=== PATIENT | female | born 1965 | race Caucasian/White ===

== ENCOUNTER 2016-07-07 15:19 | Outpatient (CLI) | payer OTHER | END 2016-07-07 15:20 | disposition EMS.NT | DX: Z04.1 Encounter for examination and observation following transport accident (principal); V49.60XA Unspecified car occupant injured in collision with unspecified motor vehicles in traffic accident, initial encounter; Y92.414 Local residential or business street as the place of occurrence of the external cause ==

== ENCOUNTER 2016-09-22 09:47 | Outpatient (CLI) | payer OTHER | END 2016-09-22 09:48 | disposition home or self-care (01) | DX: N95.9 Unspecified menopausal and perimenopausal disorder (principal) ==

== ENCOUNTER 2017-03-29 08:00 | Outpatient (CLI) | payer OTHER | END 2017-03-29 23:59 | disposition home or self-care (01) | LOC: LAB.R 08:00 | PROVIDERS: ATTEND Family Medicine | DX: N12 Tubulo-interstitial nephritis, not specified as acute or chronic (principal) | CPT/HCPCS: 87077; 87086 ==

== ENCOUNTER 2017-08-15 09:30 | Outpatient (CLI) | payer OTHER ==
[2017-08-15 18:25] LABS: BILIRUBIN,URINE NEGATIVE (NEGATIVE); GLUCOSE, URINE (UA) NEGATIVE (NEGATIVE); KETONES,URINE (UA) NEGATIVE (NEGATIVE); LEUKOCYTE ESTERASE, URINE NEGATIVE (NEGATIVE); NITRITE,URINE NEGATIVE (NEGATIVE); OCCULT BLOOD,URINE NEGATIVE (NEGATIVE); PROTEIN,URINE NEGATIVE (NEGATIVE); UROBILINOGEN,URINE 0.2 (NORMAL) E.U./dL (NORMAL)
[2017-08-15 19:04] LABS: AMORPHOUS SEDIMENT,UR Marked /LPF; BACTERIA,URINE Moderate /HPF (None Seen); CLARITY,URINE CLOUDY (CLEAR); MUCUS,URINE Moderate Strands; RBC,URINE 0-5 /HPF (0-5); SQUAMOUS EPITHELIAL CELL,UR MANY Squamous (<= Few)
== END 2017-08-15 09:31 ==
LOC: LAB.R 09:30
PROVIDERS: ATTEND Internal Medicine
DX: R03.0 Elevated blood-pressure reading, without diagnosis of hypertension (principal); N12 Tubulo-interstitial nephritis, not specified as acute or chronic; Z78.0 Asymptomatic menopausal state; F41.8 Other specified anxiety disorders
CPT/HCPCS: 81001; 87086

== ENCOUNTER 2017-08-15 09:37 | Outpatient (CLI) | payer OTHER ==
[2017-08-15 18:37] LABS: ALBUMIN 4.3 g/dL (3.2-5.5); ALBUMIN/GLOBULIN RATIO 1.4 (1.0-2.2); BILIRUBIN,TOTAL 0.7 mg/dL (0.2-1.0); CALCIUM 9.5 mg/dL (8.5-10.3); CREATININE 0.6 mg/dL (0.4-1.0); TOTAL PROTEIN 7.4 g/dL (6.7-8.2)
== END 2017-08-15 09:38 | disposition home or self-care (01) ==
LOC: LAB.F 09:37
PROVIDERS: ATTEND Family Medicine
DX: R03.0 Elevated blood-pressure reading, without diagnosis of hypertension (principal); N12 Tubulo-interstitial nephritis, not specified as acute or chronic; Z78.0 Asymptomatic menopausal state; F41.8 Other specified anxiety disorders
CPT/HCPCS: 36415; 80053; 81001; 87086

== ENCOUNTER 2017-09-29 13:12 | Outpatient (CLI) | payer OTHER ==
[2017-09-29 18:08] LABS: BASOPHILS % (AUTO) 0.7 %; HGB - HEMOGLOBIN 14.7 g/dL (12.0-16.0); LYMPHOCYTES # (AUTO) 1.3 10^3/uL (1.5-3.5); LYMPHOCYTES % (AUTO) 30.6 %; MEAN CORPUSCULAR HEMOGLOBIN 33.5 pg (27.0-31.0); MEAN CORPUSCULAR VOLUME 98.7 fL (81.0-99.0); MEAN PLATELET VOLUME 8.1 fL (7.9-10.8); MONOCYTES # (AUTO) 0.4 10^3/uL (0.0-1.0); NEUTROPHILS # (AUTO) 2.5 10^3/uL (1.5-6.6); NEUTROPHILS % (AUTO) 58.7 %; PLT - PLATELET COUNT 166 10^3/uL (130-450); RED BLOOD COUNT 4.39 10^6/uL (4.20-5.40); RED CELL DISTRIBUTION WIDTH 12.3 % (12.0-15.0); WHITE BLOOD COUNT 4.2 x10^3/uL (4.8-10.8)
[2017-09-29 18:24] LABS: ALBUMIN 4.1 g/dL (3.2-5.5); ALBUMIN/GLOBULIN RATIO 1.1 (1.0-2.2); ALKALINE PHOSPHATASE 35 IU/L (42-121); ALT ALANINE AMINOTRANSFERASE 47 IU/L (10-60); AST ASPARTATE AMINOTRANSFERASE 40 IU/L (10-42); BILIRUBIN,TOTAL 1.1 mg/dL (0.2-1.0); BUN - BLOOD UREA NITROGEN 14 mg/dL (6-20); CALCIUM 9.5 mg/dL (8.5-10.3); CARBON DIOXIDE - CO2 27 mmol/L (21-32); CHLORIDE 99 mmol/L (101-111); CREATININE 0.6 mg/dL (0.4-1.0); GFR - MDRD 105 (>89); GLUCOSE 107 mg/dL (70-100); SODIUM 135 mmol/L (135-145); TOTAL PROTEIN 7.9 g/dL (6.7-8.2)
[2017-09-30 13:53] LABS: HEPATITIS C ANTIBODY REACTIVE (NON-REACTIVE)
[2017-10-02 17:27] LABS: ANA SCREEN NEGATIVE (NEGATIVE)
[2017-10-04 13:47] LABS: HCV RNA QNT <1.18 NOT DETECTED Log IU/mL (NOT DETECTED); HCV RNA QUANT RT PCR <15 NOT DETECTED IU/mL (NOT DETECTED)
== END 2017-09-29 13:13 | disposition home or self-care (01) ==
LOC: LAB.F 13:12
PROVIDERS: ATTEND Internal Medicine
DX: Z00.00 Encounter for general adult medical examination without abnormal findings (principal); L93.0 Discoid lupus erythematosus; M25.549 Pain in joints of unspecified hand; Z79.899 Other long term (current) drug therapy
CPT/HCPCS: 36415; 80053; 81599; 84443; 85025; 85651; 86038; 86803; 87521; 87902

== ENCOUNTER 2018-06-27 15:30 | Outpatient (CLI) | payer OTHER ==
--- NOTE | 2018-06-28 17:53 | XRAY Report ---
Reason: RIGHT RIB PAIN Procedure Date: 06/27/2018 Accession Number: [id number] / [id number] Procedure: WCP - Ribs 2 View RT CPT Code: FULL RESULT: EXAM: RIGHT RIB RADIOGRAPHY EXAM DATE: 06/27/2018 03:45 PM. CLINICAL HISTORY: Right rib pain. COMPARISON: None. TECHNIQUE: 2 views. FINDINGS: Bones: Normal. No fracture or bone lesion. Lungs: No focal opacities evident. No pneumothorax or pleural effusions. Mediastinum: Heart and cardiomediastinal contours are unremarkable. Other: Bilateral breast implants are present. IMPRESSION: Normal rib radiography. [facility]
== END 2018-06-27 15:31 | disposition home or self-care (01) ==
LOC: DI.WCP 15:30
PROVIDERS: ATTEND Family Medicine
DX: R07.81 Pleurodynia (principal)

== ENCOUNTER 2019-03-22 08:00 | Outpatient (CLI) | payer OTHER | END 2019-03-22 23:59 | disposition home or self-care (01) | LOC: LAB.R 08:00 | PROVIDERS: ATTEND Nurse Practitioner Family | DX: L08.9 Local infection of the skin and subcutaneous tissue, unspecified (principal) | CPT/HCPCS: 87070; 87075; 87205 ==

== ENCOUNTER 2019-03-22 11:53 | Outpatient (CLI) | payer OTHER ==
[2019-03-22 17:11] LABS: BASOPHILS % (AUTO) 0.8 %; EOSINOPHILS # (AUTO) 0.1 10^3/uL (0.0-0.7); EOSINOPHILS % (AUTO) 1.7 %; HGB - HEMOGLOBIN 14.5 g/dL (12.0-16.0); LYMPHOCYTES # (AUTO) 1.4 10^3/uL (1.5-3.5); LYMPHOCYTES % (AUTO) 38.1 %; MEAN CORPUSCULAR HEMOGLOBIN 32.7 pg (27.0-31.0); MEAN CORPUSCULAR HGB CONC 33.3 g/dL (32.0-36.0); MEAN CORPUSCULAR VOLUME 98.2 fL (81.0-99.0); MEAN PLATELET VOLUME 10.5 fL (7.9-10.8); MONOCYTES # (AUTO) 0.4 10^3/uL (0.0-1.0); NEUTROPHILS # (AUTO) 1.7 10^3/uL (1.5-6.6); NEUTROPHILS % (AUTO) 48.1 %; PLT - PLATELET COUNT 153 10^3/uL (130-450); RED BLOOD COUNT 4.43 10^6/uL (4.20-5.40); RED CELL DISTRIBUTION WIDTH 11.9 % (12.0-15.0); WHITE BLOOD COUNT 3.5 x10^3/uL (4.8-10.8)
[2019-03-22 18:06] LABS: ALBUMIN 4.2 g/dL (3.2-5.5); ALBUMIN/GLOBULIN RATIO 1.2 (1.0-2.2); ALKALINE PHOSPHATASE 80 IU/L (42-121); ALT ALANINE AMINOTRANSFERASE 29 IU/L (10-60); AST ASPARTATE AMINOTRANSFERASE 29 IU/L (10-42); BUN - BLOOD UREA NITROGEN 12 mg/dL (6-20); CALCIUM 9.8 mg/dL (8.5-10.3); CARBON DIOXIDE - CO2 25 mmol/L (21-32); CHLORIDE 106 mmol/L (101-111); CHOL/HDL RATIO 2.5 (<4.4); CHOLESTEROL 209 mg/dL; CREATININE 0.5 mg/dL (0.4-1.0); GFR - MDRD 130 (>89); GLUCOSE 121 mg/dL (70-100); HDL CHOLESTEROL 82 mg/dL; LDL CHOLESTEROL,CALCULATED 114 mg/dL; LDL/HDL RATIO 1.4 (<4.4); SODIUM 140 mmol/L (135-145); TOTAL PROTEIN 7.6 g/dL (6.7-8.2); VLDL CHOLESTEROL 13 mg/dL
[2019-03-22 18:43] LABS: FOLLICLE STIMULATING HORMONE 48.61 mIU/mL
[2019-03-23 12:36] LABS: HEPATITIS C ANTIBODY REACTIVE (NON-REACTIVE)
[2019-03-26 16:11] LABS: HCV RNA QNT <1.18 NOT DETECTED Log IU/mL (NOT DETECTED); HCV RNA QUANT RT PCR <15 NOT DETECTED IU/mL (NOT DETECTED)
== END 2019-03-22 11:54 | disposition home or self-care (01) ==
LOC: LAB.S 11:53
PROVIDERS: ATTEND Family Medicine
DX: Z00.00 Encounter for general adult medical examination without abnormal findings (principal); F41.8 Other specified anxiety disorders; R53.83 Other fatigue; Z11.59 Encounter for screening for other viral diseases
CPT/HCPCS: 36415; 80053; 80061; 83001; 83721; 84443; 85025; 86803

== ENCOUNTER 2019-06-14 15:00 | Outpatient (CLI) | payer OTHER ==
--- NOTE | 2019-06-25 16:01 | Mammography Report ---
Reason: SCREENING MAMMO Procedure Date: 06/14/2019 Accession Number: [id number] / [id number] Procedure: MGS - Screening Mammo Dig w/Implants CPT Code: Final Report FULL RESULT: EXAM: Screening Mammo Dig w/Implants DATE: 06/14/2019 3:36 PM CLINICAL HISTORY: Screening encounter. History of early menses. Family history of breast cancer in a maternal aunt at the age of 80. History of retropectoral breast augmentation. TECHNIQUE: (B) - Bilateral CC and MLO views were obtained. Views are obtained in standard fashion and implant displaced technique. COMPARISON: None PARENCHYMAL PATTERN: (D) - The breast(s) demonstrate(s) heterogeneously dense fibroglandular parenchyma. FINDINGS: Bilateral intact-appearing saline type retropectoral breast implants are noted, typically benign. There are no suspicious masses, calcifications, or areas of distortion. IMPRESSION: Benign findings. BI-RADS category 2. RECOMMENDATION: (ANNUAL) - Recommend routine annual screening mammography. BI-RADS CATEGORY: (2) - Benign Findings. STANDARD QUALIFYING STATEMENTS: 1. This examination was reviewed with the aid of Computer-Aided Detection (CAD). 2. A negative or benign imaging report should not preclude biopsy if clinically suspicious findings are present. 3. Dense breasts may obscure an underlying neoplasm. 4. This examination was reviewed without the aid of 3D breast imaging (tomosynthesis).
== END 2019-06-14 15:01 | disposition home or self-care (01) ==
LOC: DI.S 15:00
PROVIDERS: ATTEND Family Medicine
DX: Z12.31 Encounter for screening mammogram for malignant neoplasm of breast (principal); Z80.3 Family history of malignant neoplasm of breast; Z98.82 Breast implant status
CPT/HCPCS: 77067

== ENCOUNTER 2019-06-14 15:13 | Outpatient (CLI) | payer OTHER | END 2019-06-14 15:14 | disposition home or self-care (01) | LOC: LAB.S 15:13 | PROVIDERS: ATTEND Family Medicine | DX: B19.20 Unspecified viral hepatitis C without hepatic coma (principal) | CPT/HCPCS: 36415; 81599; 86803; 87522 ==

== ENCOUNTER 2020-02-14 15:16 | Outpatient (CLI) | payer OTHER ==
--- NOTE | 2020-02-14 15:41 | XRAY Report ---
PROCEDURE: Foot 3 View LT INDICATIONS: PAINFUL LT FOOT TECHNIQUE: 3 views of the foot were acquired. COMPARISON: None FINDINGS: Bones: Irregular osseous density which is mostly fused to the medial margin of the navicular, nonspec ific. Remaining osseous structures intact and unremarkable. Soft tissues: No tibiotalar effusion. IMPRESSION: Irregularity along the medial aspect of the navicular is nonspecific. This could be post traumatic in nature or be due to partial fusion of an os navicularis with associated pseudoarthrosis and degenera tive changes. In either case, this is a potential pain generator. Remaining osseous structures are intact. Joint spaces are otherwise maintained. No acute soft tissue finding. Reviewed by: Samuel Aguirre MD on 02/14/2020 3:40 PM PDT Approved by: Samuel Aguirre MD on 02/14/2020 3:40 PM PDT Station ID: [id number]
== END 2020-02-14 15:17 | disposition home or self-care (01) ==
LOC: DI 15:16
PROVIDERS: ATTEND Podiatrist
DX: R93.6 Abnormal findings on diagnostic imaging of limbs (principal)

== ENCOUNTER 2020-03-04 14:24 | Outpatient (CLI) | payer OTHER | END 2020-03-04 14:25 | disposition home or self-care (01) | LOC: LAB.S 14:24 | PROVIDERS: ATTEND Nurse Practitioner Family | DX: N95.9 Unspecified menopausal and perimenopausal disorder (principal); Z79.899 Other long term (current) drug therapy | CPT/HCPCS: 36415; 84144; 86140 ==

== ENCOUNTER 2020-07-26 12:10 | Outpatient (CLI) | payer OTHER ==
[2020-07-26 18:22] LABS: BASOPHILS % (AUTO) 1.1 %; EOSINOPHILS # (AUTO) 0.1 10^3/uL (0.0-0.7); EOSINOPHILS % (AUTO) 1.7 %; HCT - HEMATOCRIT 46.8 % (37.0-47.0); HGB - HEMOGLOBIN 14.4 g/dL (12.0-16.0); LYMPHOCYTES # (AUTO) 1.5 10^3/uL (1.5-3.5); LYMPHOCYTES % (AUTO) 42.9 %; MEAN CORPUSCULAR HEMOGLOBIN 32.4 pg (27.0-31.0); MEAN CORPUSCULAR HGB CONC 30.8 g/dL (32.0-36.0); MEAN CORPUSCULAR VOLUME 105.2 fL (81.0-99.0); MEAN PLATELET VOLUME 9.8 fL (7.9-10.8); MONOCYTES # (AUTO) 0.5 10^3/uL (0.0-1.0); MONOCYTES % (AUTO) 12.6 %; NEUTROPHILS # (AUTO) 1.5 10^3/uL (1.5-6.6); NEUTROPHILS % (AUTO) 41.7 %; PLT - PLATELET COUNT 158 10^3/uL (130-450); RED BLOOD COUNT 4.45 10^6/uL (4.20-5.40); RED CELL DISTRIBUTION WIDTH 12.1 % (12.0-15.0); WHITE BLOOD COUNT 3.6 x10^3/uL (4.8-10.8)
[2020-07-26 18:49] LABS: ALKALINE PHOSPHATASE 48 IU/L (42-121); ALT ALANINE AMINOTRANSFERASE 34 IU/L (10-60); AST ASPARTATE AMINOTRANSFERASE 33 IU/L (10-42); CALCIUM 9.1 mg/dL (8.5-10.3); CARBON DIOXIDE - CO2 19 mmol/L (21-32); CHLORIDE 100 mmol/L (101-111); CHOL/HDL RATIO 2.7 (<4.4); CHOLESTEROL 203 mg/dL; GLUCOSE 130 mg/dL (70-100); HDL CHOLESTEROL 75 mg/dL; LDL CHOLESTEROL,CALCULATED 116 mg/dL; LDL/HDL RATIO 1.5 (<4.4); POTASSIUM 4.5 mmol/L (3.5-5.0); SODIUM 133 mmol/L (135-145); TOTAL PROTEIN 7.4 g/dL (6.7-8.2); TRIGLYCERIDES 61 mg/dL; VLDL CHOLESTEROL 12 mg/dL
[2020-07-26 18:58] LABS: THYROID STIMULATING HORMONE 1.05 uIU/mL (0.34-5.60)
== END 2020-07-26 12:11 | disposition home or self-care (01) ==
LOC: LAB.S 12:10
PROVIDERS: ATTEND Naturopath
DX: Z00.00 Encounter for general adult medical examination without abnormal findings (principal); I10 Essential (primary) hypertension
CPT/HCPCS: 36415; 80053; 80061; 82306; 83721; 84443; 85025; 86141

== ENCOUNTER 2020-08-19 16:09 | Outpatient (CLI) | payer OTHER ==
[2020-08-19 20:06] LABS: BILIRUBIN,TOTAL 0.6 mg/dL (0.2-1.0); CREATININE 0.7 mg/dL (0.4-1.0)
[2020-08-19 20:13] LABS: ESTIMATED AVERAGE GLUCOSE 111 mg/dL (70-100); HEMOGLOBIN A1c% 5.5 % (4.27-6.07)
== END 2020-08-19 16:10 | disposition home or self-care (01) ==
LOC: LAB.S 16:09
PROVIDERS: ATTEND Physician Assistant
DX: R73.01 Impaired fasting glucose (principal)
CPT/HCPCS: 36415; 82247; 82565; 83036; 84520

== ENCOUNTER 2020-12-10 14:00 | Outpatient (CLI) | payer OTHER ==
--- NOTE | 2020-12-10 17:22 | XRAY Report ---
PROCEDURE: Finger(s) RT INDICATIONS: RT 4TH FINGER JOINT PAINFUL, BUMP TECHNIQUE: AP hand, 3 views of the fourth finger(s) acquired. COMPARISON: None FINDINGS: Bones: No fractures or dislocations. No suspicious bony lesions. Juxta-articular lucencies involvi ng the third through fifth MCP joints and the fourth DIP joint. Soft tissues: No suspicious soft tissue calcifications. IMPRESSION: Juxta-articular lucencies involving the third, fourth and fifth MCP joints as well as the fourth DIP joint which could represent small erosions. If there is sufficient clinical concern, then advanced im aging (CT, MRI, bone scan) should be considered for further evaluation. Reviewed by: MICAELA Lujan on 12/10/2020 5:21 PM PDT Approved by: Johnathon Cruz MD on 12/10/2020 5:21 PM PDT Station ID: [id number]
--- NOTE | 2020-12-10 18:16 | XRAY Report ---
PROCEDURE: Foot 3 View LT INDICATIONS: L FOOT PX TECHNIQUE: 3 views of the foot were acquired. COMPARISON: None. FINDINGS: Bones: There is pes planus. No fractures or dislocations. No suspicious bony lesions. Mild first me tatarsophalangeal joint degeneration. Soft tissues: No tibiotalar joint effusion. Achilles tendon appears normal. IMPRESSION: 1. Pes planus. 2. 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 Reviewed by: Chandra Palacios MD on 12/10/2020 6:15 PM PDT Approved by: Chandra Palacios MD on 12/10/2020 6:15 PM PDT Station ID: [id number]
== END 2020-12-10 23:59 | disposition home or self-care (01) ==
LOC: MERGE 14:00 → DI.N 14:00
PROVIDERS: ATTEND Physician Assistant
DX: M25.541 Pain in joints of right hand (principal); R93.6 Abnormal findings on diagnostic imaging of limbs; M19.072 Primary osteoarthritis, left ankle and foot; M21.42 Flat foot [pes planus] (acquired), left foot

== ENCOUNTER 2021-02-04 20:37 | Outpatient (CLI) | payer OTHER | END 2021-02-04 20:38 | disposition EMS.NT | LOC: EMS 20:37 | DX: I10 Essential (primary) hypertension (principal); R42 Dizziness and giddiness; R20.2 Paresthesia of skin ==

== ENCOUNTER 2021-03-05 11:49 | Outpatient (CLI) | payer OTHER | END 2021-03-05 11:50 | disposition home or self-care (01) | LOC: LAB 11:49 | PROVIDERS: ATTEND Nurse Practitioner Family | DX: N95.1 Menopausal and female climacteric states (principal); Z79.899 Other long term (current) drug therapy | CPT/HCPCS: 84144 ==

== ENCOUNTER 2021-07-07 08:00 | Outpatient (CLI) | payer OTHER | END 2021-07-07 23:59 | LOC: LAB.R 08:00 | PROVIDERS: ATTEND Registered Nurse | DX: N30.00 Acute cystitis without hematuria (principal) | CPT/HCPCS: 87077; 87086; 87181 ==

== ENCOUNTER 2021-07-21 14:08 | Outpatient (CLI) | payer OTHER | END 2021-07-21 14:09 | disposition home or self-care (01) | LOC: LAB.S 14:08 | PROVIDERS: ATTEND Registered Nurse | DX: N30.00 Acute cystitis without hematuria (principal) | CPT/HCPCS: 36415; 80053; 83690; 84443; 85025; 85651; 86140; 87086 ==

== ENCOUNTER 2021-08-04 15:22 | Outpatient (CLI) | payer OTHER ==
--- NOTE | 2021-08-05 15:53 | Mammography Report ---
BILATERAL DIGITAL SCREENING MAMMOGRAM 3D/2D WITH EXAGGERATED CC CLEAVAGE: 08/04/2021 CLINICAL: Routine screening. Family history of breast cancer. Comparison is made to exams dated: 06/14/2019 mammogram - [facility] and 04/30/2018 m ammogram - outside location. The tissue of both breasts is heterogeneously dense. This may lower the sensitivity of mammography. No significant masses, calcifications, or other findings are seen in either breast. There has been no significant interval change. IMPRESSION: NEGATIVE There is no mammographic evidence of malignancy. A 1 year screening mammogram is recommended. This exam was interpreted at Station ID: [id number]. NOTE: For mammograms, a report in lay terms will be sent to the patient. Approximately 15% of breast malignancies will not be visualized mammographically. In the management of a palpable breast mass, a negative mammogram must not discourage biopsy of a clinically suspicious lesion. Electronically Signed By: Ana Maria townsend/penrad:08/05/2021 10:31:23 ACR BI-RADS Category 1: Negative 3341F PARENCHYMAL PATTERN: (D) - The breast(s) demonstrate(s) heterogeneously dense fibroglandular parmercedezy ma. BI-RADS CATEGORY: (1) - 1 RECOMMENDATION: (ANNUAL) - Recommend routine annual screening mammography. [id number] 1 year screening LATERALITY: (B)
== END 2021-08-04 15:23 | disposition home or self-care (01) ==
LOC: DI.S 15:22
PROVIDERS: ATTEND Naturopath
DX: Z12.31 Encounter for screening mammogram for malignant neoplasm of breast (principal); Z80.3 Family history of malignant neoplasm of breast

== ENCOUNTER 2021-09-19 13:33 | Emergency (ER) | payer OTHER ==
[2021-09-19 13:52] VITALS: BP 138/96
[2021-09-19] MEDS ORDERED: FAMOTIDINE 20 MG TABLET PO STA (14:04)
[2021-09-19] MEDS ORDERED: diphenhydrAMINE 25 MG CAPSULE PO STA (14:04)
--- NOTE | 2021-09-19 14:08 | ED Physician Documentation ---
History of Present Illness - Stated complaint Stated Complaint: RASH - Chief complaint Chief Complaint: Allergic Rx - Additonal information Additional information: 56-year-old female presents emergency department for evaluation of a raised red pruritic rash on the left side of her neck and chest. Reports that last night she began to have some itching in this area and today [place] [employer] noticed the rash. It is nonvesicular. She denies any new foods soaps or lotions. She does use a face and neck cream in this area but denies that it is a new product or formulary. She reports that she tends to have allergic reactions recently was diagnosed with a urinary tract infection and had an allergic reaction to Cipro as well as penicillins. She is concerned that she could also have a concurrent urinary tract infection. She has some mild urgency but no dysuria or frequency. She has not taken anything for the rash. She would decline any steroids at this juncture. Review of Systems Constitutional: denies: Fever, Chills Eyes: reports: Reviewed and negative Nose: reports: Reviewed and negative Cardiac: reports: Reviewed and negative Respiratory: reports: Reviewed and negative GI: reports: Reviewed and negative : reports: Hesitancy Skin: reports: Rash Musculoskeletal: reports: Reviewed and negative Neurologic: reports: Reviewed and negative PD PAST MEDICAL HISTORY - Past Medical History Endocrine/Autoimmune: Systemic lupus erythematosus - Past Surgical History Past Surgical History: No - Present Medications Home Medications: Ambulatory Orders Medication Instructions Recorded Confirmed Hydroxychloroquine [Plaquenil] 200 mg PO DAILY 10/03/14 10/03/14 oxyCODONE [Roxicodone] 5 mg PO Q6H PRN #14 tablet 10/04/14 - Allergies Allergies/Adverse Reactions: Allergies Allergy/AdvReac Type Severity Reaction Status Date / Time ciprofloxacin [From Cipro] Allergy Rash Verified 09/19/21 13:49 Penicillins Allergy Rash Verified 09/19/21 13:47 - Social History Does the pt smoke?: No Smoking Status: Never smoker Does the pt drink ETOH?: Yes Does the pt have substance abuse?: No - Immunizations Immunizations are current?: Yes - POLST Patient has POLST: No PD ED PE NORMAL - General General: Alert and oriented X 3, No acute distress, Well developed/nourished - HEENT HEENT: Atraumatic, Moist mucous membranes, Pharynx benign - Neck Neck: Supple, no meningeal sign, No JVD - Cardiac Cardiac: RRR, No murmur - Respiratory Respiratory: No respiratory distress - Abdomen Abdomen: Normal bowel sounds, Soft - Back Back: No CVA TTP - Derm Derm: Normal color, Warm and dry. No: No rash (Raised erythematous maculopapular rash. Left side of neck and chest. Nonvesicular. Blanches easily. Negative Nikolsky's.) - Extremities Extremities: No deformity - Neuro Neuro: Alert and oriented X 3, armhole sewer 2-12 intact Eye Opening: Spontaneous Motor: Obeys Commands Verbal: Oriented GCS Score: 15 Results - Vitals Vitals: Vital Signs - 24 hr 09/19/21 13:49 Temperature 36.5 C Heart Rate 68 Respiratory 16 Rate Blood Pressure 138/96 H O2 Saturation 98 Oxygen O2 Source Room air - Labs Labs: Laboratory Tests 09/19/21 14:20 Urine Color YELLOW Urine Clarity CLOUDY Urine pH 8.0 H Ur Specific [place] 1.020 Urine Protein NEGATIVE Urine Glucose (UA) NEGATIVE Urine Ketones NEGATIVE Urine Occult Blood NEGATIVE Urine Nitrite NEGATIVE Urine Bilirubin NEGATIVE Urine Urobilinogen 0.2 (NORMAL) Ur Leukocyte Esterase NEGATIVE Urine RBC 0-5 Urine WBC 0-3 Ur Squamous Epith Cells FEW Squamous Amorphous Sediment Moderate Urine Bacteria Moderate H Ur Microscopic Review INDICATED Urine Culture Comments NOT INDICATED PD MEDICAL DECISION MAKING - ED course Complexity details: considered differential, d/w patient ED course: Well-appearing 56-year-old female presents emergency department for evaluation of a rash on the left side of her chest and neck that she began noticing yesterday evening. Denies any new lotions products medications. She was working with paint yesterday and thinks that maybe she could have an allergic reaction to that. She does not have any systemic signs such as respiratory distress shortness of air tongue or lip swelling. She was given a dose of Pepcid and Benadryl here in the ER. I did offer a dose of Decadron or short course of prednisone but she declined that today unless symptoms fail to improve. 9 she also reports some mild urinary urgency but no pain dysuria fevers vomiting. Her urine today shows moderate bacteria but no secondary signs to suggest infection thus antibiotics are deferred unless culture is positive. She will continue close follow-up with her primary care provider. Emergent return precautions otherwise discussed Departure - Departure Disposition: 01 Home, Self Care Clinical Impression: Rash Condition: Stable Record reviewed to determine appropriate education?: Yes Instructions: ED Allergic Reaction Local Other, HYDROCORTISONE Cream Comments: You are seen today in the emergency department for a rash that began developing on the left side of your neck and chest yesterday. This is consistent with an allergic reaction that may be due to the use of the paint and/or your neck cream. I recommend a cool compress over this area to help reduce itch. You may also use hydrocortisone cream. Benadryl 25 mg taken twice daily for the next 2 to 3 days as well as Pepcid 20 mg taken twice daily for the next 2 to 3 days may help reduce itch and the severity of the rash. If at any point you find that your symptoms are worsening, tongue or lip swelling or difficulty breathing then please return immediately to the ER. You reported some urinary urgency. Your urine does show bacteria but there are no secondary signs to suggest infection. We will send her urine for culture and notify you if there are any positive results that would warrant treatment. I encourage you to discuss this closely with your primary care provider as increased urinary symptoms can be due to multiple other conditions other than infection, such as Interstitial cystitis, bladder weakness etc.
[2021-09-19 14:25] LABS: BILIRUBIN,URINE NEGATIVE (NEGATIVE); CLARITY,URINE CLOUDY (CLEAR); GLUCOSE, URINE (UA) NEGATIVE (NEGATIVE); KETONES,URINE (UA) NEGATIVE (NEGATIVE); LEUKOCYTE ESTERASE, URINE NEGATIVE (NEGATIVE); NITRITE,URINE NEGATIVE (NEGATIVE); OCCULT BLOOD,URINE NEGATIVE (NEGATIVE); PROTEIN,URINE NEGATIVE (NEGATIVE); UROBILINOGEN,URINE 0.2 (NORMAL) E.U./dL (NORMAL)
[2021-09-19 14:34] LABS: RBC,URINE 0-5 /HPF (0-5); SQUAMOUS EPITHELIAL CELL,UR FEW Squamous (<= Few); WBC,URINE 0-3 /HPF (0-5)
[2021-09-19 14:35] LABS: AMORPHOUS SEDIMENT,UR Moderate /LPF; BACTERIA,URINE Moderate /HPF (None Seen)
== END 2021-09-19 14:45 | disposition home or self-care (01) ==
LOC: ED 13:33
DX: R21 Rash and other nonspecific skin eruption (principal); R39.15 Urgency of urination; R39.11 Hesitancy of micturition
CPT/HCPCS: 81001; 99282; 99283; A9270; 81003; 87086

== ENCOUNTER 2021-10-02 08:00 | Outpatient (CLI) | payer OTHER ==
[2021-10-02 18:40] LABS: BILIRUBIN,URINE NEGATIVE (NEGATIVE); GLUCOSE, URINE (UA) NEGATIVE (NEGATIVE); KETONES,URINE (UA) NEGATIVE (NEGATIVE); LEUKOCYTE ESTERASE, URINE NEGATIVE (NEGATIVE); NITRITE,URINE NEGATIVE (NEGATIVE); OCCULT BLOOD,URINE NEGATIVE (NEGATIVE); PROTEIN,URINE NEGATIVE (NEGATIVE); UROBILINOGEN,URINE 0.2 (NORMAL) E.U./dL (NORMAL)
[2021-10-02 18:44] LABS: CLARITY,URINE HAZY (CLEAR)
[2021-10-02 19:31] LABS: AMORPHOUS SEDIMENT,UR Few /LPF; BACTERIA,URINE Few /HPF (None Seen); RBC,URINE 0-5 /HPF (0-5); SQUAMOUS EPITHELIAL CELL,UR FEW Squamous (<= Few); WBC,URINE 0-3 /HPF (0-5)
== END 2021-10-02 23:59 | disposition home or self-care (01) ==
LOC: LAB.S 08:00
PROVIDERS: ATTEND Physician Assistant Medical
DX: R30.0 Dysuria (principal)
CPT/HCPCS: 81001; 87086

== ENCOUNTER 2021-10-02 15:39 | Outpatient (CLI) | payer OTHER ==
--- NOTE | 2021-10-02 16:25 | XRAY Report ---
PROCEDURE: Hip w/Pelvis 2-3V LT INDICATIONS: LEFT HIP AND LOWER BACK PAIN TECHNIQUE: AP pelvis with lateral view of the left hip. COMPARISON: None. FINDINGS: Bones: No acute fractures or dislocations. Pelvic ring appears intact. No suspicious bony lesions. Mild bilateral hip osteoarthrosis. Soft tissues: The visualized bowel gas pattern is normal. No suspicious soft tissue calcifications. IMPRESSION: Mild bilateral hip osteoarthrosis. No acute osseous abnormality. If symptoms persist or there is continued clinical concern, further evaluation with MRI or CT may be helpful. Reviewed by: Jett Pierson MD on 10/02/2021 4:23 PM PDT Approved by: Jett Pierson MD on 10/02/2021 4:23 PM PDT Station ID: [id number]
--- NOTE | 2021-10-02 16:26 | XRAY Report ---
PROCEDURE: Lumbar Spine Complete INDICATIONS: PAIN IN LEFT HIP AND LOWER BACK TECHNIQUE: 4 views of the lumbar spine were acquired. COMPARISON: None. FINDINGS: Bones: 5 nonrib-bearing vertebrae are present. There is trace levoconvex curvature centered at the L2-3 level. No vertebral body compression fractures. No suspicious bony lesions. Multilevel disc s pace narrowing and degenerative endplate changes are seen that are most prominent at the L2-3 level. Facet hypertrophy is seen throughout the lumbar spine. Soft tissues: Overlying bowel gas pattern is normal. No suspicious soft tissue calcifications. Oblique images: No pars defects. IMPRESSION: Moderate multilevel spondylosis. No acute osseous abnormality. If symptoms persist or th ere is continued clinical concern, further evaluation with MRI or CT may be helpful. Reviewed by: Jett Pierson MD on 10/02/2021 4:24 PM PDT Approved by: Jett Pierson MD on 10/02/2021 4:24 PM PDT Station ID: [id number]
== END 2021-10-02 15:40 | disposition home or self-care (01) ==
LOC: DI.S 15:39
PROVIDERS: ATTEND Naturopath
DX: M47.816 Spondylosis without myelopathy or radiculopathy, lumbar region (principal); M16.0 Bilateral primary osteoarthritis of hip

== ENCOUNTER 2022-10-04 14:10 | Outpatient (CLI) | payer OTHER ==
[2022-10-04 19:11] LABS: BASOPHILS % (AUTO) 0.5 %; EOSINOPHILS % (AUTO) 0.3 %; HCT - HEMATOCRIT 44.3 % (37.0-47.0); HGB - HEMOGLOBIN 14.4 g/dL (12.0-16.0); LYMPHOCYTES # (AUTO) 1.4 10^3/uL (1.5-3.5); MEAN CORPUSCULAR HGB CONC 32.5 g/dL (32.0-36.0); MEAN CORPUSCULAR VOLUME 98.4 fL (81.0-99.0); MEAN PLATELET VOLUME 10.3 fL (7.9-10.8); MONOCYTES # (AUTO) 0.5 10^3/uL (0.0-1.0); MONOCYTES % (AUTO) 7.8 %; NEUTROPHILS # (AUTO) 4.5 10^3/uL (1.5-6.6); NEUTROPHILS % (AUTO) 70.2 %; PLT - PLATELET COUNT 183 10^3/uL (130-450); RED CELL DISTRIBUTION WIDTH 12.6 % (12.0-15.0); WHITE BLOOD COUNT 6.4 x10^3/uL (4.8-10.8)
[2022-10-04 19:41] LABS: ALBUMIN 4.4 g/dL (3.2-5.5); ALBUMIN/GLOBULIN RATIO 1.3 (1.0-2.2); BILIRUBIN,TOTAL 0.8 mg/dL (0.2-1.0); CALCIUM 9.3 mg/dL (8.5-10.3); CREATININE 0.6 mg/dL (0.4-1.0); POTASSIUM 3.7 mmol/L (3.5-5.0); TOTAL PROTEIN 7.7 g/dL (6.7-8.2)
[2022-10-04 19:50] LABS: T4 (THYROXINE) 5.81 ug/dL (6.09-12.23)
[2022-10-04 19:51] LABS: THYROID STIMULATING HORMONE 1.89 uIU/mL (0.34-5.60)
[2022-10-04 19:53] LABS: FREE T3 2.68 pg/mL (2.5-3.9)
[2022-10-04 19:58] LABS: FERRITIN 231.8 ng/mL (11.0-306.8)
[2022-10-06 04:09] LABS: VITAMIN D 25-HYDROXY 55.8 ng/mL (30.0-100.0)
[2022-10-06 07:10] LABS: PROGESTERONE 2.2 ng/mL (.)
[2022-10-06 16:08] LABS: FREE TESTOSTERONE(DIRECT) 3.2 pg/mL (0.0-4.2)
== END 2022-10-04 14:11 | disposition home or self-care (01) ==
LOC: LAB.S 14:10
PROVIDERS: ATTEND Naturopath
DX: N95.1 Menopausal and female climacteric states (principal); L65.9 Nonscarring hair loss, unspecified
CPT/HCPCS: 36415; 80053; 82306; 82607; 82627; 82672; 82728; 83540; 84144; 84402; 84403; 84436; 84443; 84466; 84481; 84630; 85025

== ENCOUNTER 2022-11-29 08:00 | Outpatient (CLI) | payer OTHER ==
[2022-11-30 12:39] LABS: CHLAMYDIA TRACHOMATIS DNA NEGATIVE (NEGATIVE); NEISSERIA GONORRHOEAE DNA NEGATIVE (NEGATIVE)
[2022-11-30 14:53] LABS: BACTERIAL VAGINOSIS DNA NEGATIVE (NEGATIVE); CANDIDA GLABRATA DNA NEGATIVE (NEGATIVE); CANDIDA GROUP DNA NEGATIVE (NEGATIVE); CANDIDA KRUSEI DNA NEGATIVE (NEGATIVE); TRICHOMONAS VAGINALIS DNA NEGATIVE (NEGATIVE)
== END 2022-11-29 23:59 | disposition home or self-care (01) ==
LOC: LAB.S 08:00
PROVIDERS: ATTEND Nurse Practitioner
DX: R30.0 Dysuria (principal)
CPT/HCPCS: 81514; 87086; 87181; 87491; 87591; 87661

== ENCOUNTER 2023-05-09 12:40 | Outpatient (CLI) | payer OTHER ==
--- NOTE | 2023-05-09 21:57 | XRAY Report ---
PROCEDURE: Chest 2V INDICATIONS: EXPOSURE TO MOLD TECHNIQUE: 2 views of the chest were acquired. COMPARISON: None. Correlation made to rib x-ray 06/27/2018 FINDINGS: Surgical changes and devices: None. Lungs and pleura: Mild mid and lower lung perihilar interstitial prominence bilaterally. No dense co nsolidations or masses. No pleural effusions or visible calcifications. Mediastinum: Mediastinal contours appear normal. Heart size is normal. Bones and chest wall: No suspicious bony lesions. Overlying soft tissues appear unremarkable. IMPRESSION: 1. Interstitial prominence is nonspecific but can be seen in viral or atypical pneumonitis or interst itial pneumonitis. Consider follow-up two-view chest x-ray following appropriate treatment course. Reviewed by: Ana Maria Sofia MD on 05/09/2023 9:56 PM PST Approved by: Ana Maria Sofia MD on 05/09/2023 9:56 PM [facility] Station ID: [id number]
== END 2023-05-09 12:41 | disposition home or self-care (01) ==
LOC: DI.S 12:40
PROVIDERS: ATTEND Naturopath
DX: Z77.120 Contact with and (suspected) exposure to mold (toxic) (principal)

== ENCOUNTER 2023-11-07 14:08 | Outpatient (CLI) | payer OTHER ==
--- NOTE | 2023-11-08 11:00 | Mammography Report ---
BILATERAL DIGITAL SCREENING MAMMOGRAM 3D/2D: 11/07/2023 CLINICAL: Routine screening. Family history of breast cancer. Comparison is made to exams dated: 08/04/2021 mammogram and 06/14/2019 mammogram - [facility]. Both breasts are extremely dense, which lowers the sensitivity of mammography (category d />75% gland ular tissue). No significant masses, calcifications, or other findings are seen in either breast. There has been no significant interval change. IMPRESSION: NEGATIVE There is no mammographic evidence of malignancy. A 1 year screening mammogram is recommended. Based on the Tyrer Cuzick model (a risk assessment model) the patient's lifetime risk is 19.0% and he r 10 year risk is 7.0%. According to the ACR, ACS, and NCCN guidelines, an annual breast MRI exam abelino ng with mammogram is recommended if the patient's lifetime risk is 20% or greater. This exam was interpreted at Station ID: [id number]. NOTE: For mammograms, a report in lay terms will be sent to the patient. Approximately 15% of breast malignancies will not be visualized mammographically. In the management of a palpable breast mass, a negative mammogram must not discourage biopsy of a clinically suspicious lesion. Electronically Signed By: Troy encarnacion/colt:11/07/2023 15:38:05 letter sent: No_Letter ACR BI-RADS Category 1: Negative 3341F PARENCHYMAL PATTERN: (VD) - The breast(s) demonstrate(s) extremely dense parenchyma, limiting the sen sitivity of mammography. BI-RADS CATEGORY: (1) - 1 RECOMMENDATION: (ANNUAL) - Recommend routine annual screening mammography. [id number] 1 year screening LATERALITY: (B)
== END 2023-11-07 14:09 | disposition home or self-care (01) ==
LOC: DI.S 14:08
PROVIDERS: ATTEND Naturopath
DX: Z12.31 Encounter for screening mammogram for malignant neoplasm of breast (principal); Z80.3 Family history of malignant neoplasm of breast

== ENCOUNTER 2023-11-13 11:21 | Outpatient (CLI) | payer OTHER | END 2023-11-13 11:22 | disposition home or self-care (01) | LOC: RT 11:21 | PROVIDERS: ATTEND Naturopath | DX: Z13.6 Encounter for screening for cardiovascular disorders (principal) | CPT/HCPCS: 93005 ==

== ENCOUNTER 2024-01-06 12:35 | Outpatient (CLI) | payer OTHER ==
--- NOTE | 2024-01-06 14:20 | XRAY Report ---
PROCEDURE: Hip w/Pelvis 2-3V RT INDICATIONS: RT HIP PAIN, TECHNIQUE: 2 views of the hip were acquired. COMPARISON: None. FINDINGS: Bones: No fractures or dislocations. No suspicious bony lesions. Soft tissues: No suspicious soft tissue calcifications or masses. IMPRESSION: No acute bony abnormality. If there is continued clinical concern for pathology or occult fracture, consider follow-up imaging w ith repeat radiographs in 10-14 days and possible advanced imaging (CT, MRI, bone scan) if symptoms p ersist. Reviewed by: Samuel Hernandez MD on 01/06/2024 1:19 PM [facility] Approved by: Samuel Hernandez MD on 01/06/2024 1:19 PM [facility] Station ID: [id number]
--- NOTE | 2024-01-06 14:23 | XRAY Report ---
PROCEDURE: Foot 3+V RT INDICATIONS: RT FOOT PAIN TECHNIQUE: 3 views of the foot were acquired. COMPARISON: Left foot dated 02/14/2020. FINDINGS: Bones: No acute fractures or dislocations. No suspicious bony lesions. Soft tissues: No tibiotalar joint effusion. Achilles tendon appears normal. Nonspecific radiopaque soft tissue density involving the medial aspect of the right fourth toe near the level of the middle phalanx and proximal interphalangeal joint. This measures approximately 0.9 x 0.5 cm in size. IMPRESSION: No acute bony abnormality. Nonspecific 0.9 x 0.5 cm oval soft tissue density along the medial aspect of the right fourth toe adjacent to the level of the middle phalanx and proximal interphalangeal join t. Recommend clinical correlation for point tenderness in this region. If there is persistent clinical c oncern, consider further characterization with outpatient MRI of the right foot with and without cont rast. Reviewed by: Samuel Hernandez MD on 01/06/2024 1:22 PM [facility] Approved by: Samuel Hernandez MD on 01/06/2024 1:22 PM [facility] Station ID: [id number]
--- NOTE | 2024-01-06 14:24 | XRAY Report ---
PROCEDURE: Lumbar Spine 2-3V INDICATIONS: LOW BACK PAIN TECHNIQUE: 3 views of the lumbar spine were acquired. COMPARISON: None. FINDINGS: Surgical change: None. Bones: 5 [id number] vertebrae are present. Mild levocurvature lumbar spine. No acute vertebral body compression fractures. No suspicious bony lesions. Multilevel lumbar spondylosis. Soft tissues: Overlying bowel gas pattern is normal. No suspicious soft tissue calcifications. IMPRESSION: Lumbar spine without acute osseous abnormalities. Multilevel lumbar spondylosis. Reviewed by: Samuel Henrandez MD on 01/06/2024 1:23 PM [facility] Approved by: Samuel Hernandez MD on 01/06/2024 1:23 PM [facility] Station ID: [id number]
== END 2024-01-06 12:36 | disposition home or self-care (01) ==
LOC: DI.S 12:35
PROVIDERS: ATTEND Naturopath
DX: M25.551 Pain in right hip (principal); M47.816 Spondylosis without myelopathy or radiculopathy, lumbar region; R22.41 Localized swelling, mass and lump, right lower limb